=== PATIENT | female | born 1995 | race Two or more races ===

== ENCOUNTER 2018-05-28 17:11 | Emergency (ER) | payer SELFPAY ==
[~2018-05-28] VITALS: Ht 170.2 cm; Wt 74.8 kg
--- NOTE | 2018-05-28 18:43 | NUR ---
BB FOR POSSIBLY SWALLOWED A PIECE OF GLASS/PORCELAINE FROM A BROKEN BOWL WHILE EATING SOUP. PT IS . PT STS THAT SHE SPIT OUT BLOOD X 1 EPISODE. C/O SOME THROAT DISCOMFORT. PT IS CONCERN ABT HER BABY. NAD WILL CONT TO MONITOR
--- NOTE | 2018-05-28 19:26 | NUR ---
US TECH AT BEDSIDE
--- NOTE | 2018-05-28 20:45 | NUR ---
PATIENT HAS SIGNED AGAINST MEDICAL ADVICE OF MD GARCIA. AMA FORM SIGNED AND EXPLAINED.
[2018-05-28 20:46] VITALS: BP 119/65
== END 2018-05-28 20:48 | disposition left against medical advice (07) ==
LOC: ER 17:17
DX: O26.893 Other specified pregnancy related conditions, third trimester (principal); Z3A.32 32 weeks gestation of pregnancy
CPT/HCPCS: 76536; 99284; A4606; Z7610